=== PATIENT | female | born 1990 | race Caucasian/White ===

== ENCOUNTER 2022-01-26 05:44 | Inpatient (IN) | payer OTHER ==
[~2022-01-26] VITALS: Ht 170.2 cm; Wt 88.0 kg
[2022-01-26] MEDS ORDERED: ANTACID168 MG PO (07:18)
[2022-01-26 08:06] LABS: HEMOGLOBIN 12.9 gm/dl (12.3-15.3); RED BLOOD COUNT 4.04 M/UL (4.00-5.10)
[2022-01-26] MEDS ORDERED: PERCOCET 5/325 T1 EA PO (13:39)
[2022-01-26] MEDS ORDERED: COLACE100 MG PO (13:39)
[2022-01-26] MEDS ORDERED: HEMOCYTE324 MG PO (13:39)
[2022-01-26] MEDS ORDERED: IBUPROFEN800 MG PO (13:39)
[2022-01-27 05:39] LABS: HEMOGLOBIN 11.5 gm/dl (12.3-15.3)
== END 2022-01-27 15:40 | disposition home or self-care (01) | DRG 807 ==
LOC: GENOP 05:44 → OB 07:33
PROVIDERS: ADMIT Obstetrics & Gynecology
PROC: 10E0XZZ Delivery of Products of Conception, External Approach (ICD-10-PCS; principal; 2022-01-26)
PROC: 10907ZC Drainage of Amniotic Fluid, Therapeutic from Products of Conception, Via Natural or Artificial Opening (ICD-10-PCS; 2022-01-26)
PROC: 4A1HXCZ Monitoring of Products of Conception, Cardiac Rate, External Approach (ICD-10-PCS; 2022-01-26)
PROC: 0HQ9XZZ Repair Perineum Skin, External Approach (ICD-10-PCS; 2022-01-26)
PROC: 3E0234Z Introduction of Serum, Toxoid and Vaccine into Muscle, Percutaneous Approach (ICD-10-PCS; 2022-01-26)
DX: O99.344 Other mental disorders complicating childbirth (principal); Z37.0 Single live birth; F32.A Depression, unspecified; Z20.822 Contact with and (suspected) exposure to COVID-19; Z3A.39 39 weeks gestation of pregnancy; Z82.49 Family history of ischemic heart disease and other diseases of the circulatory system; Z83.3 Family history of diabetes mellitus; O70.0 First degree perineal laceration during delivery; Z23 Encounter for immunization
CPT/HCPCS: 36415; 81001; 85014; 85018; 85025; 90471; 90715; J0595; J2405; J2590; J7120; U0002